=== PATIENT | male | born 1960 | race African-American/Black ===

== ENCOUNTER 2016-09-20 07:19 | Day surgery (SDC) | payer OTHER ==
[2016-09-16 18:10] VITALS: BMI 37.5
[2016-09-20] MEDS ORDERED: BUPIVACAINE HCL/PF 2.5 MG/ML - 30 ML VIAL IJ ONE (08:58)
[2016-09-20] MEDS ORDERED: MIDAZOLAM HCL 2 MG/2 ML SINGLE DOSE VIAL ONE (09:00)
[2016-09-20] MEDS ORDERED: PROPOFOL 20 ML ONE (09:23)
[2016-09-20] MEDS ORDERED: KETOROLAC TROMETHAMINE 30 MG/1 ML VIAL ONE (09:29)
[2016-09-20] MEDS ORDERED: ONDANSETRON 4 MG/2 ML VIAL ONE (09:29)
[2016-09-20] MEDS ORDERED: ceFAZolin SODIUM 1 GM VIAL ONE (09:31)
[2016-09-20] MEDS ORDERED: BUPIVACAINE HCL/PF 0.25% (2.5MG/ML) 10 ML VIAL IJ ONE (09:43)
[2016-09-20] MEDS ORDERED: oxyCODONE HCL 5 MG TABLET PO PRN (10:06)
[2016-09-20] MEDS ORDERED: ONDANSETRON 4 MG/2 ML VIAL IVPUSH PRN (10:06)
[2016-09-20] MEDS ORDERED: LACTATED RINGERS SOLUTION 1,000 ML IV SCH (10:15)
[2016-09-20 11:07] VITALS: TEMP 98
[2016-09-20 11:44] VITALS: BP 131/72; PULSE 56
--- NOTE | 2016-09-24 09:09 | OP ---
DATE OF OPERATION: 09/20/2016 SURGEON: Holly Holland MD IT HELP DESK MANAGER: JOSEMANUEL Paz PREOPERATIVE DIAGNOSES: 1. Right knee medial and lateral meniscal tear. 2. Right knee cartilage tear. 3. Right knee synovitis. POSTOPERATIVE DIAGNOSES: 1. Right knee medial and lateral meniscal tear. 2. Right knee cartilage tear. 3. Right knee synovitis. PROCEDURE: 1. Total right knee arthroscopy with partial meniscectomy medial and lateral meniscus. 2. Right knee arthroscopy with chondroplasty and abrasion-plasty. 2. Right knee arthroscopy with synovectomy . CPT CODE: 99538, 12937, 2976 FINDINGS: 1. Medial meniscus body and posterior horn tear. 2. Lateral meniscus anterior horn tear. 3. Synovitis patellofemoral medial and lateral notch. 4. Anterior grade 2 cartilage injury medial epicondyle with small area of grade 4 flapping. 5. ACL and PCL intact. 6. cartilage injury lateral joint line. 7. Anterior grade 2-4 cartilage injury patellofemoral trochlea and patellofemoral joint. PROCEDURE: Informed consent was obtained. The patient was taken to the operating room where the right lower extremity was prepped and draped in a sterile fashion. A tourniquet was placed on the right upper thigh but not inflated. Using standard arthroscopic technique, a lateral incision and portal were made which allowed for introduction of the camera into the suprapatellar bursa. This was then taken to the medial joint line where under direct visualization, a medial incision and portal were made. Excessive synovium noted in the medial, lateral, patellofemoral and notch area was removed by the up-biting shaver and Bovie cautery. This was found to bring inflammatory tissue into the joint surface, a source of joint pain and dysfunction. Probing of the medial and lateral meniscus found tears described in the findings. These were removed with an up-biting shaver and taken back to a stable rim. Grade 2-3 degenerative changes were treated with chondroplasty, removing all flaking surfaces with low setting Bovie used along the periphery. Grade 4 changes were treated with abrasion-plasty. All areas of the knee were once again re-examined. The knee was then drained. A single suture was placed on all portals. Sterile dressing was placed. The patient was transferred to the recovery room. HOLLY HOLLAND M.D. FILIPPO/[id number]
--- NOTE | 2016-09-24 14:02 | PATH ---
Surgical Pathology Report Patient Name: KYM HILL [facility]. Rec. #: [id number] /Age/Gender: 1960 (Age: 56) / M Account: [id number] Location: [facility] AMBULATORY Taken: 09/20/2016 Received: 09/20/2016 Reported: 09/24/2016 Physicians: Jairon Pena M.D. Specimen(s) Received RIGHT KNEE SHAVINGS Clinical History Right knee internal derangement Final Diagnosis SOFT TISSUE, RIGHT KNEE, ARTHROSCOPIC SHAVINGS: SYNOVIUM AND FIBROCARTILAGE WITH MYXOHYALINE DEGENERATION. Electronically Signed Deshawn Hdez M.D. Gross Description Received in formalin, labeled "right knee shavings" is a 3.5 x 2.5 x 0.7 cm aggregate of cast-yellow soft tissue fragments. A registration representative portion is submitted in one cassette. AF/09/23/2016 final/09/23/2016
== END 2016-09-20 11:46 | disposition home or self-care (01) ==
LOC: FASU 07:19
PROVIDERS: ATTEND Orthopaedic Surgery
PROC: 0SBC4ZZ Excision of Right Knee Joint, Percutaneous Endoscopic Approach (ICD-10-PCS; 2016-09-20)
PROC: 0SBC4ZZ Excision of Right Knee Joint, Percutaneous Endoscopic Approach (ICD-10-PCS; 2016-09-20)
PROC: 0SBC4ZZ Excision of Right Knee Joint, Percutaneous Endoscopic Approach (ICD-10-PCS; principal; 2016-09-20 09:38)
DX: S83.241A Other tear of medial meniscus, current injury, right knee, initial encounter (principal); S83.281A Other tear of lateral meniscus, current injury, right knee, initial encounter; S83.8X1A Sprain of other specified parts of right knee, initial encounter; M65.861 Other synovitis and tenosynovitis, right lower leg; X58.XXXA Exposure to other specified factors, initial encounter; Y93.9 Activity, unspecified; Y92.9 Unspecified place or not applicable
CPT/HCPCS: 88304-TC; 94760